=== PATIENT | female | born 1960 | race Hispanic/Latino ===

== ENCOUNTER → 2017-12-04 | Outpatient (CLI) | payer OTHER ==
[~2017-12-04] MED LIST: CLARITIN D1 TAB.SR . PO; FISH OIL 1,0001 EAC9 PO; MULTI-VITAMIN1 EAC4 PO; PROVENTIL 0.083%3 ML INH; TUSSIONEX5 ML GT; Z JANUMET PO; Z.0.AZITHROMYCIN250 PO; Z.0.FLONASE16 GM NS; Z.0.LISINOPRIL10 MG PO; Z.0.SINGULAIR10 MG PO; [UNRECOGNIZED DRUG - CODE] PO
--- NOTE | 2017-12-07 08:33 | Diagnostic Imaging Report ---
#[id number] - MGSCRBIL #BILATERAL DIGITAL SCREENING MAMMOGRAM WITH CAD: 12/04/2017 CLINICAL: Routine screening. Comparison is made to exam dated: 02/09/2014 mammogram - [facility]. Current study contains 4 films. The tissue of both breasts is heterogeneously dense. This may lower the sensitivity of mammography. Current study was also evaluated with a Computer Aided Detection (CAD) system. There are benign lymph nodes in both breasts. No significant masses, calcifications, or other findings are seen in either breast. There has been no significant interval change. IMPRESSION: BENIGN There is no mammographic evidence of malignancy. A 1 year screening mammogram is recommended. The patient will be notified by letter of the results. Eleazar sidhu/edy:12/04/2017 16:26:27 [employer] Superintendent: Cait AMAYA(Katherine)(M), [facility] letter sent: Compared to Prior B9 Mammogram BI-RADS: 2 Benign
== END ==
LOC: MAMMO 09:01
PROVIDERS: ATTEND Family Medicine
DX: Z12.31 Encounter for screening mammogram for malignant neoplasm of breast (principal)
CPT/HCPCS: 77067

== ENCOUNTER → 2018-12-15 | Outpatient (CLI) | payer OTHER ==
--- NOTE | 2018-12-17 09:29 | Diagnostic Imaging Report ---
#[id number] - MGSCRBIL #BILATERAL DIGITAL SCREENING MAMMOGRAM WITH CAD: 12/15/2018 CLINICAL: Routine screening. Comparison is made to exams dated: 12/04/2017 mammogram and 02/09/2014 mammogram - [facility]. Current study contains 4 films. The tissue of both breasts is heterogeneously dense. This may lower the sensitivity of mammography. Current study was also evaluated with a Computer Aided Detection (CAD) system. No significant masses, calcifications, or other findings are seen in either breast. IMPRESSION: NEGATIVE There is no mammographic evidence of malignancy. A 1 year screening mammogram is recommended. The patient will be notified by letter of the results. MAHESH MACHUCA M.D. ct/penrad:12/16/2018 15:50:42 [employer]: Cait AMAYA(Katherine)(M), [facility] letter sent: Normal Exam Mammogram BI-RADS: 1 Negative
== END ==
LOC: MAMMO 14:19
PROVIDERS: ATTEND Family Medicine
DX: Z12.31 Encounter for screening mammogram for malignant neoplasm of breast (principal)
CPT/HCPCS: 77067